=== PATIENT | male | born 1975 | race Caucasian/White ===

== ENCOUNTER 2024-01-21 14:59 | Emergency (ER) | payer OTHER, SELFPAY ==
[2024-01-21 15:08] VITALS: BP 150/87
--- NOTE | 2024-01-21 16:26 | ED.GENMED ---
History of Present Illness
General
Chief Complaint: Abdominal Pain
Source: patient
Exam Limitations: none
Time Seen by Provider: 01/21/24 16:04
Nursing documentation reviewed up to this point in time: agreed with
Travel History
Have you had any contact with someone who has COVID-19?: No
Do you have any symptoms of coronavirus? Fever > 100 degrees, chills, cough, shortness of breath, sore throat, loss of taste or smell, muscle aches, or headache?: No
History of Present Illness
History of Present Illness:
48-year-old male with past medical history of hypertension presenting to the emergency department today with concerns of intermittent right-sided groin discomfort over the past 2 weeks. He was seen by his primary care doctor today which told him to
come to the emergency department for assessment of potential hernia. Denies any changes in bowel movements nausea vomiting or additional concerns.
Review of Systems
Review of Systems
Allergies reviewed?: Yes
All Other Systems: ROS reviewed and negative except as documented in HPI and ROS
Phy Exam
Physical Exam
Physical Exam:
GENERAL: Alert , in no apparent distress
EYE: pupils equal and reactive
NECK: Supple, no significant adenopathy.
ENT: o/p clr, mmm.
CARDIAC: Regular rate and rhythm .
LUNGS: Clear breath sounds bilaterally, no acute respiratory distress, no wheezes/rales/rhonchi
ABDOMEN: Soft, without focal tenderness, no r/g, no cvat
NEUROLOGICAL: Alert and oriented, no focal neuro deficits
SKIN: Warm and dry, skin intact.
MUSCULOSKELETAL: No edema, well perfused.
PSYCH: Normal and appropriate interaction.
Course
Orders/Labs/Results
Orders:
Orders
01/21/24 16:28
CT Abd/Pel (IV only)-[facility] only Urgent
Comment:
Reason For Exam: right groin pain hx of hernia
01/21/24 16:39
Complete Blood Count/With Diff Urgent
Comprehensive Metabolic Panel Urgent
01/21/24 17:05
Urinalysis Reflex To Culture Urgent
Date Specimen was Collected: 01/21/24
Time Specimen was Collected: 17:04
Abnormal Lab Results
01/21/24
16:39
MPV 10.5 H fL
(7.4-10.4)
Absolute Monos (auto) 0.9 H 10^3/uL
(0.1-0.6)
ALT 87 H U/L
(0-50)
01/21/24 16:39
01/21/24 16:39
Vital Signs
Initial and Last Documented VS:
Initial Vital Signs
Temp Pulse Resp BP Pulse Ox
98.5 F 84 16 150/87 98
01/21/24 15:08 01/21/24 15:08 01/21/24 15:08 01/21/24 15:08 01/21/24 15:08
Last Documented Vital Signs
Temp Pulse Resp BP Pulse Ox
98.5 F 84 16 150/87 98
01/21/24 15:08 01/21/24 15:08 01/21/24 15:08 01/21/24 15:08 01/21/24 15:08
MDM/Problems Addressed
MDM/Problems Addressed:
48-year-old male presenting to the emergency department today with concerns of right sided groin and inguinal discomfort intermittent mass sensation made worse with increased abdominal pressure and leaning over. Here he is well-appearing normal
vital signs no acute distress unable to palpate any mass in that area. Labs unremarkable urinalysis normal. CT scan without signs of active significant hernia to the groin or inguinal region. He was advised for follow-up as an outpatient as
symptoms do sound potentially consistent with intermittent hernia. Return precautions given.
*Critical Care Note
Total Time (30-74mins, 75-104mins- exclusive of procedures): Not Applicable
ED Attending Note
-
Portions of this chart may have been created with voice recognition software.� Occasional wrong word or��sound alike� substitutions may have occurred due to the inherent limitations of voice recognition software.
Discharge Plan
Departure
Patient Disposition: Home (Routine Discharge)
Date of Disposition: 01/21/24
Time of Disposition: 20:40
Patient with high blood pressure during this ER visit?: No
Condition: Good
Covid-19: Not Applicable
Discharge Problem:
Inguinal pain
Instructions: Groin Hernia (DC)
Referrals:
Valerio Kwan MD [Active] - Follow up in 5-7 days
Zach Roth MD [Family Provider] -
Activity Restrictions/Additional Instructions:
You came to emergency department today with concerns of inguinal discomfort. Here you to reassuring evaluation no signs of emergent process. Please follow closely with the general surgeon for reassessment for potential hernia. Return to the
emergency department for any worsening, new or concerning symptoms.
Interventions
Interventions:
*Risk Screen - Suicide Last Done: 01/21/24 15:08
*General Assessment Last Done: 01/21/24 15:08
*Neglect/Abuse Screening Last Done: 01/21/24 15:08
*ED COVID-19 Vaccine History Last Done: 01/21/24 15:08
JA-Wezgfl-Irgidhrxny Assessment Last Done: 01/21/24 16:40
[2024-01-21 16:50] LABS: % Basophils 0.8 % (0-2); % Eosinophils 3.7 % (0-6); % Immature Granulocytes 0.3 % (0-0.5); % Lymphocytes 26.7 % (20.5-51.1); % Monocytes 8.5 % (1.7-9.3); Absolute Basophils 0.1 10^3/uL (0-0.2); Absolute Eosinophils 0.4 10^3/uL (0-0.7); Absolute Lymphocytes 2.7 10^3/uL (1.2-3.4); Absolute Monocytes 0.9 10^3/uL (0.1-0.6); Absolute Neutrophils 6.1 10^3/uL (1.4-6.5); Hematocrit 41.8 % (39.0-52.0); Hemoglobin 14.2 g/dL (13.0-18.0); Mean Corpuscular Hgb 29.6 pg (27.0-31.0); Mean Corpuscular Volume 87.1 fL (80.0-94.0); Mean Platelet Volume 10.5 fL (7.4-10.4); Nucleated Red Blood Cells % 0 % (-); Platelet Count 328 10^3/uL (130-400); White Blood Cell Count 10.1 10^3/uL (4.8-10.8)
[2024-01-21 17:08] LABS: ALT (SGPT) 87 U/L (0-50); AST (SGOT) 49 U/L (17-59); Albumin 4.6 g/dl (3.5-5.0); Alkaline Phosphatase 72 U/L (38-126); Blood Urea Nitrogen 14 mg/dl (9-20); Calcium 9.6 mg/dl (8.4-10.2); Carbon Dioxide 25 mmol/L (22-30); Chloride 106 mmol/L (98-107); Glucose 92 mg/dl (70-99); Potassium 4.1 mmol/L (3.5-5.1); Sodium 137 mmol/L (135-145); Total Bilirubin 0.5 mg/dl (0.2-1.3); Total Protein 7.6 g/dl (6.3-8.2); eGFR > 60.00
[2024-01-21 17:34] LABS: Urine Albumin Negative (Neg - Trace); Urine Bilirubin Negative (Negative); Urine Character Clear (Clear); Urine Color Yellow; Urine Glucose Negative (Negative); Urine Ketone Negative (Negative); Urine Leukocyte Negative (Negative); Urine Nitrite Negative (Negative); Urine Occult Blood Negative (Negative); Urine Specific Gravity 1.015 (<1.030); Urine Urobilinogen Negative (Neg - 1+)
[2024-01-21 20:41] VITALS: BP 123/93
== END 2024-01-21 20:45 | disposition home or self-care (01) ==
LOC: EMR 14:59
PROVIDERS: Physician Assistant; EMERGENCY PHYSICIAN Emergency Medicine; FAMILY PHYSICIAN Family Medicine
DX: R10.30 Lower abdominal pain, unspecified (principal); R10.2 Pelvic and perineal pain
CPT/HCPCS: 99285; 74177; 80053; 81003; 85025; Q9967

== ENCOUNTER → 2024-02-24 11:50 | Outpatient (REF) | payer OTHER, SELFPAY | LOC: RAD 11:50 | PROVIDERS: ATTENDING PHYSICIAN Family Medicine | DX: M25.551 Pain in right hip (principal); K40.90 Unilateral inguinal hernia, without obstruction or gangrene, not specified as recurrent; I10 Essential (primary) hypertension | CPT/HCPCS: 73522 ==